=== PATIENT | female | born 1995 | race Caucasian/White ===

== ENCOUNTER 2019-01-12 08:09 | Outpatient (CLI) | payer OTHER ==
--- NOTE | 2019-01-12 14:52 | Ultrasound Report ---
Reason: TEST POSITIVE Procedure Date: 01/12/2019 Accession Number: [id number] / [id number] Procedure: US - OB First Trimester CPT Code: FULL RESULT: EXAM: FIRST TRIMESTER OBSTETRIC ULTRASOUND (Less than 11 weeks) EXAM DATE: 01/12/2019 09:21 AM. CLINICAL HISTORY: TEST POSITIVE. LMP: 11/29/2018. COMPARISONS: None. TECHNIQUE: Transabdominal and transvaginal ultrasound examination with static image documentation. CLINICAL DATES: EGA 6 weeks 2 days with NUNU 09/05/2019 based on LMP. ASSESSMENT: Gestational Sac: Intrauterine gestational sac with a mean sac diameter of 12.1 mm corresponding to an estimated gestation age of 5 weeks 2 days and an NUNU of 09/12/2019. Embryo: none. Cardiac activity: none. Yolk sac: none. Amniotic fluid: Not applicable. Early placenta: Not applicable. Other: None. MATERNAL STRUCTURES: Uterus: Retroverted and retroflexed. Unremarkable. Cervix: Closed. Right Ovary/Adnexa: Right ovary largely replaced by a complex debris-containing right ovarian 5.4 x 4.2 x 5.5 cm cyst. No mural nodules or thickened septations are noted. Left Ovary/Adnexa: 3 x 1.3 x 2.2 Cm complex left ovarian cyst with debris and mild peripheral flow. No mural nodules or thickened septations. . The ovary measures 4.3 x 2.7 x 2.3 cm, volume cc. Free Fluid: None. Other: None. IMPRESSION: 1. Single intrauterine gestational sac containing no yolk sac or embryo. Based on mean sac diameter, estimated gestational age is 5 weeks 2 days with an NUNU of 09/12/2019. Dates based upon mean sac diameter are concordant with dates based upon LMP. Recommend continued US and laboratory monitoring. 2. Right ovary largely replaced by a complex debris-containing 5.5 cm cyst most compatible with hemorrhagic cyst. No mural nodules or thickened septations. 3 cm complex left ovarian cyst most compatible with a corpus luteum. Otherwise, both ovaries and adnexa are normal. 3. No subchorionic hemorrhage or other complications are noted. 4. No abnormality explaining the patient's symptoms. RADIA
== END 2019-01-12 08:10 | disposition home or self-care (01) ==
LOC: DI 08:09
PROVIDERS: ATTEND Registered Nurse
DX: O34.81 Maternal care for other abnormalities of pelvic organs, first trimester (principal); N83.202 Unspecified ovarian cyst, left side; N83.201 Unspecified ovarian cyst, right side; Z3A.01 Less than 8 weeks gestation of pregnancy
CPT/HCPCS: 76801

== ENCOUNTER 2019-02-02 08:14 | Outpatient (CLI) | payer OTHER ==
--- NOTE | 2019-02-02 10:13 | Ultrasound Report ---
Reason: TEST POSTITIVE Procedure Date: 02/02/2019 Accession Number: [id number] / [id number] Procedure: US - OB First Trimester CPT Code: FULL RESULT: EXAM: FIRST TRIMESTER OBSTETRIC ULTRASOUND (Less than 11 weeks) EXAM DATE: 02/02/2019 09:14 AM. CLINICAL HISTORY: TEST POSITIVE. LMP: Unknown. COMPARISONS: None. TECHNIQUE: Transabdominal and transvaginal ultrasound examination with static image documentation. CLINICAL DATES: EGA 9 weeks 2 days with NUNU 09/05/2019 based on LMP 11/29/2018. ASSESSMENT: Gestational Sac: Single intrauterine. Mean gestational sac diameter: 30.5 mm = 8 weeks 0 days. Embryo: CRL (crown-rump length) 21 mm = 8 weeks 5 days. Cardiac activity: 169 beats per minute. Yolk sac: 3.5 mm. Amniotic fluid: Not accurately assessed at this gestational age. Early placenta: Not visible at this gestational age. Other: No perigestational fluid collection demonstrated. MATERNAL STRUCTURES: Uterus: Anteverted/Retroverted. Unremarkable. Cervix: Closed. Right Ovary/Adnexa: The ovary measures 5.4 x 2.7 x 3.1 cm. No adnexal mass. Left Ovary/Adnexa: The ovary measures 4.2 x 3.7 x 3.2 cm. No adnexal mass. Free Fluid: Trace free fluid. Other: None. IMPRESSION: Single living intrauterine with ultrasound based gestational age of 8 weeks 5 days. Size is essentially concordant with dates. No or maternal abnormality identified. RADIA
== END 2019-02-02 08:15 | disposition home or self-care (01) ==
LOC: DI 08:14
PROVIDERS: ATTEND Registered Nurse
DX: Z32.01 Encounter for pregnancy test, result positive (principal)
CPT/HCPCS: 76801; 76817

== ENCOUNTER 2019-02-13 16:18 | Outpatient (CLI) | payer OTHER ==
[2019-02-14 15:29] LABS: MUDS CUTOFF CONCENTRATIONS CUTOFF CONC BELOW:
[2019-02-14 16:16] LABS: AMPHETAMINE SCREEN,URINE NEGATIVE (NEGATIVE); BENZODIAZEPINES SCREEN, URINE NEGATIVE (NEGATIVE); COCAINE SCREEN URINE NEGATIVE (NEGATIVE); METHADONE SCREEN, URINE NEGATIVE (NEGATIVE); METHAMPHETAMINES SCREEN, URINE NEGATIVE (NEGATIVE); OPIATE SCREEN, URINE NEGATIVE (NEGATIVE); OXYCODONE SCREEN, URINE NEGATIVE (NEGATIVE); PROPOXYPHENE SCREEN, URINE NEGATIVE (NEGATIVE); TRICYCLIC ANTIDEPRESSANT,URINE NEGATIVE (NEGATIVE)
== END 2019-02-13 16:19 | disposition home or self-care (01) ==
LOC: LAB.R 16:18
PROVIDERS: ATTEND Registered Nurse
DX: Z36.89 Encounter for other specified antenatal screening (principal)
CPT/HCPCS: 80306

== ENCOUNTER 2019-02-14 13:13 | Outpatient (CLI) | payer OTHER ==
[2019-02-14 18:37] LABS: BILIRUBIN,URINE NEGATIVE (NEGATIVE); GLUCOSE, URINE (UA) NEGATIVE (NEGATIVE); KETONES,URINE (UA) NEGATIVE (NEGATIVE); NITRITE,URINE NEGATIVE (NEGATIVE); OCCULT BLOOD,URINE NEGATIVE (NEGATIVE); PROTEIN,URINE NEGATIVE (NEGATIVE); UROBILINOGEN,URINE 0.2 (NORMAL) E.U./dL (NORMAL)
[2019-02-14 18:50] LABS: BASOPHILS % (AUTO) 0.4 %; EOSINOPHILS # (AUTO) 0.1 10^3/uL (0.0-0.7); EOSINOPHILS % (AUTO) 1.4 %; HGB - HEMOGLOBIN 12.8 g/dL (12.0-16.0); LYMPHOCYTES # (AUTO) 1.8 10^3/uL (1.5-3.5); LYMPHOCYTES % (AUTO) 27.6 %; MEAN CORPUSCULAR HEMOGLOBIN 29.9 pg (27.0-31.0); MEAN CORPUSCULAR HGB CONC 33.6 g/dL (32.0-36.0); MEAN CORPUSCULAR VOLUME 88.8 fL (81.0-99.0); MONOCYTES # (AUTO) 0.5 10^3/uL (0.0-1.0); MONOCYTES % (AUTO) 7.2 %; NEUTROPHILS # (AUTO) 4.1 10^3/uL (1.5-6.6); NEUTROPHILS % (AUTO) 63.4 %; PLT - PLATELET COUNT 280 10^3/uL (130-450); RED CELL DISTRIBUTION WIDTH 13.1 % (12.0-15.0); WHITE BLOOD COUNT 6.4 x10^3/uL (4.8-10.8)
[2019-02-14 19:20] LABS: CLARITY,URINE CLEAR (CLEAR); LEUKOCYTE ESTERASE, URINE NEGATIVE (NEGATIVE)
[2019-02-14 19:21] LABS: BACTERIA,URINE None Seen /HPF (None Seen); RBC,URINE None Seen /HPF (0-5); SQUAMOUS EPITHELIAL CELL,UR RARE Squamous (<= Few)
[2019-02-15 08:31] LABS: HEPATITIS B SURFACE ANTIGEN NON-REACTIVE (NON-REACTIVE)
[2019-02-15 12:46] LABS: HEPATITIS C ANTIBODY NON-REACTIVE (NON-REACTIVE)
[2019-02-15 13:56] LABS: HIV AG/AB 4TH GEN NON-REACTIVE (NON-REACTIVE)
== END 2019-02-14 13:14 | disposition home or self-care (01) ==
LOC: LAB.N 13:13
PROVIDERS: ATTEND Registered Nurse
DX: Z36.89 Encounter for other specified antenatal screening (principal)
CPT/HCPCS: 36415; 81001; 81599; 85025; 86762; 86803; 86850; 86900; 86901; 87086; 87340; 87389

== ENCOUNTER 2019-04-20 08:09 | Outpatient (CLI) | payer OTHER ==
--- NOTE | 2019-04-20 17:15 | Ultrasound Report ---
Reason: ENCOUNTER FOR OTHER SPECIFIED SCREENING Procedure Date: 04/20/2019 Accession Number: [id number] / [id number] Procedure: US - OB Detailed Eval CPT Code: FULL RESULT: EXAM: COMPLETE OBSTETRICAL ULTRASOUND EXAM DATE: 04/20/2019 09:30 AM. CLINICAL HISTORY: anatomic survey. COMPARISON: 02/02/2019. TECHNIQUE: Real-time sonographic evaluation of the fetus performed by the body cleaner. Multiple provider relations representative static images were saved for review. DATING: Established EGA 20 weeks 2 days with NUNU 09/05/2019 based on LMP. EGA 19 weeks 5 days with NUNU 09/09/2019 based on prior ultrasound of 02/02/2019. EGA 19 weeks 0 days with NUNU 09/14/2019 based on the current ultrasound. GENERAL EVALUATION Vo . Cardiac activity: 150 bpm. movement: Present. Presentation: Vertex. Placenta: Posterior position. Low lying placenta terminates 1.7 cm from the internal cervical loss. Umbilical cord: 3 vessel cord. Central placental cord origin. Amniotic fluid: Subjectively normal. MVP 3 cm. BIOMETRY Bi-Parietal Diameter (BPD): 4.1 cm, 18 weeks 4 days Head Circumference (HC): 15.8 cm, 18 weeks 4 days Abdominal Circumference (AC): 13.3 cm, 18 weeks 5 days Femur Length (FL): 3.1 cm, 19 weeks 4 days Estimated Weight: 272 g, fourth percentile for 20 weeks 2 days. ANATOMY The intracranial structures, profile, face/nose/lips, spine, 4 chamber heart and outflow tracts, stomach, abdominal wall and cord insertion, diaphragm, kidneys, bladder, and extremities were seen and demonstrate no abnormality. MATERNAL STRUCTURES Uterus: Unremarkable. Cervix: Long and closed. Transabdominal length 4.5 cm. Right ovary/adnexa: Unremarkable. Left ovary/adnexa: Unremarkable. Free fluid: None. IMPRESSION: 1. Vo intrauterine with gestational age 20 weeks 2 days based on LMP. 2. Estimated weight is at the 4th percentile for expected age. Suggest follow-up OB ultrasound in 2-4 weeks for reassessment of growth. 3. Normal anatomic survey. No anatomic abnormalities are detected at this time. 4. Low lying posterior placenta, the tip 1.7 cm from the internal cervical os. RADIA
== END 2019-04-20 08:10 | disposition home or self-care (01) ==
LOC: DI 08:09
PROVIDERS: ATTEND Nurse Practitioner Obstetrics & Gynecology
DX: Z36.89 Encounter for other specified antenatal screening (principal)
CPT/HCPCS: 76811

== ENCOUNTER 2019-06-11 08:00 | Outpatient (CLI) | payer OTHER ==
[2019-06-11 12:43] LABS: BASOPHILS % (AUTO) 0.2 %; EOSINOPHILS # (AUTO) 0.1 10^3/uL (0.0-0.7); EOSINOPHILS % (AUTO) 0.8 %; HGB - HEMOGLOBIN 11.2 g/dL (12.0-16.0); LYMPHOCYTES # (AUTO) 1.7 10^3/uL (1.5-3.5); LYMPHOCYTES % (AUTO) 18.6 %; MEAN CORPUSCULAR HEMOGLOBIN 30.4 pg (27.0-31.0); MEAN CORPUSCULAR HGB CONC 32.2 g/dL (32.0-36.0); MEAN CORPUSCULAR VOLUME 94.3 fL (81.0-99.0); MONOCYTES # (AUTO) 0.5 10^3/uL (0.0-1.0); MONOCYTES % (AUTO) 5.5 %; NEUTROPHILS # (AUTO) 6.6 10^3/uL (1.5-6.6); NEUTROPHILS % (AUTO) 73.9 %; PLT - PLATELET COUNT 277 10^3/uL (130-450); RED BLOOD COUNT 3.69 10^6/uL (4.20-5.40); RED CELL DISTRIBUTION WIDTH 12.9 % (12.0-15.0); WHITE BLOOD COUNT 8.9 x10^3/uL (4.8-10.8)
== END 2019-06-11 23:59 | disposition home or self-care (01) ==
LOC: LAB.N 08:00
PROVIDERS: ATTEND Nurse Practitioner Obstetrics & Gynecology
DX: Z36.89 Encounter for other specified antenatal screening (principal)
CPT/HCPCS: 36415; 82950; 85025; 86850

== ENCOUNTER 2019-06-15 08:01 | Outpatient (CLI) | payer OTHER | END 2019-06-15 08:02 | disposition home or self-care (01) | LOC: LAB 08:01 | PROVIDERS: ATTEND Nurse Practitioner Obstetrics & Gynecology | DX: O99.810 Abnormal glucose complicating pregnancy (principal) | CPT/HCPCS: 36415; 82951; 82952 ==

== ENCOUNTER 2019-07-10 14:41 | Outpatient (CLI) | payer OTHER ==
[2019-07-10 15:14] VITALS: BP 111/64
--- NOTE | 2019-07-11 12:39 | PROCEDURE REPORT ---
- HPI Current EDU 09/05/19 Gestation 31 Weeks and 6 Days 1 Para 0 Vital Signs Temperature 37.1 C 07/10/19 15:12 Heart Rate 84 07/10/19 15:12 Respiratory Rate 16 07/10/19 15:12 Blood Pressure 111/64 07/10/19 15:12 O2 Saturation 100 07/10/19 15:12 Temperature 37.1 C 07/10/19 15:12 Heart Rate 84 07/10/19 15:12 Respiratory Rate 16 07/10/19 15:12 Blood Pressure 111/64 07/10/19 15:12 O2 Saturation 100 07/10/19 15:12 - NST Procedure NST Procedure Start Date 07/10/19 Start Time 14:56 Stop Time 15:50 Vibroacoustic Stimulation Used No Patient States Movement Yes NST reactive - Results and Plan Findings/Impression: IUGR. Pt seen by MFM twice weekly NST with BPP
== END 2019-07-10 15:50 | disposition home or self-care (01) ==
LOC: WFO 14:41 → FBP 14:44 → WFO 15:50
PROVIDERS: ATTEND Obstetrics & Gynecology
DX: O36.5930 Maternal care for other known or suspected poor fetal growth, third trimester, not applicable or unspecified (principal); Z3A.31 31 weeks gestation of pregnancy
CPT/HCPCS: 59025

== ENCOUNTER 2019-07-24 08:55 | Outpatient (CLI) | payer OTHER ==
[2019-07-24 09:18] VITALS: BP 111/73
--- NOTE | 2019-07-24 10:06 | PROCEDURE REPORT ---
- HPI Diagnosis/Indication for NST: Intrauterine growth restriction Current EDU 09/05/19 Gestation 33 Weeks and 6 Days 1 Para 0 Vital Signs Temperature 36.9 C 07/24/19 09:17 Heart Rate 88 07/24/19 09:17 Respiratory Rate 16 07/24/19 09:17 Blood Pressure 111/73 07/24/19 09:17 O2 Saturation 99 07/24/19 09:17 Temperature 36.9 C 07/24/19 09:17 Heart Rate 88 07/24/19 09:17 Respiratory Rate 16 07/24/19 09:17 Blood Pressure 111/73 07/24/19 09:17 O2 Saturation 99 07/24/19 09:17 - NST Procedure NST Procedure Start Date 07/24/19 Start Time 09:04 Stop Time 15:33 Vibroacoustic Stimulation Used No Patient States Movement Yes - Results and Plan Findings/Impression: Reactive NST as noted. The NST was read on 07/24/2019. Plan: The patient is going to be discharged home. She has a follow-up ultrasound on 07/26/2019 at the [facility] in [place].She states they are trying to determine whether she will deliver there or here. She does state that at this point time FMF and have found nothing more with this fetus then being slightly small but I do not feel that this is true IUGR at this time.She will continue with her biweekly NSTs.
== END 2019-07-24 09:45 | disposition home or self-care (01) ==
LOC: WFO 08:55 → FBP 08:58 → WFO 09:45
PROVIDERS: ATTEND Obstetrics & Gynecology
DX: O36.5930 Maternal care for other known or suspected poor fetal growth, third trimester, not applicable or unspecified (principal); Z3A.33 33 weeks gestation of pregnancy
CPT/HCPCS: 59025

== ENCOUNTER 2019-07-31 14:53 | Outpatient (CLI) | payer OTHER ==
[2019-07-31 15:21] VITALS: BP 107/65
--- NOTE | 2019-07-31 15:50 | PROCEDURE REPORT ---
- HPI Diagnosis/Indication for NST: Intrauterine growth restriction Current EDU 09/05/19 Gestation 34 Weeks and 6 Days 1 Para 0 Vital Signs Temperature 36.8 C 07/31/19 15:10 Heart Rate 96 07/31/19 15:10 Respiratory Rate 16 07/31/19 15:10 Blood Pressure 107/65 07/31/19 15:10 O2 Saturation 100 07/31/19 15:10 Temperature 36.8 C 07/31/19 15:10 Heart Rate 96 07/31/19 15:10 Respiratory Rate 16 07/31/19 15:10 Blood Pressure 107/65 07/31/19 15:10 O2 Saturation 100 07/31/19 15:10 - NST Procedure NST Procedure Start Date 07/31/19 Start Time 15:10 Stop Time 15:40 Vibroacoustic Stimulation Used No Patient States Movement Yes - Results and Plan Findings/Impression: The NST is reactive. This was read on 07/31/2019 Impression: Intrauterine at 34 weeks 6 days gestation IUGR Plan: The patient is going to be discharged home. She will follow-up with her regular office appointments and serial NSTs.
== END 2019-07-31 15:45 | disposition home or self-care (01) ==
LOC: WFO 14:53 → FBP 15:04 → WFO 15:45
PROVIDERS: ATTEND Obstetrics & Gynecology
DX: O36.5930 Maternal care for other known or suspected poor fetal growth, third trimester, not applicable or unspecified (principal); Z3A.34 34 weeks gestation of pregnancy
CPT/HCPCS: 59025

== ENCOUNTER 2019-08-07 08:00 | Outpatient (CLI) | payer OTHER | END 2019-08-07 23:59 | disposition home or self-care (01) | LOC: LAB.R 08:00 | PROVIDERS: ATTEND Obstetrics & Gynecology | DX: O24.419 Gestational diabetes mellitus in pregnancy, unspecified control (principal) | CPT/HCPCS: 87797 ==

== ENCOUNTER 2019-08-07 14:48 | Outpatient (CLI) | payer OTHER ==
[2019-08-07 15:15] VITALS: BP 115/72
--- NOTE | 2019-08-07 18:08 | Ultrasound Report ---
Reason: IUGR Procedure Date: 08/07/2019 Accession Number: [id number] / [id number] Procedure: US - OB Bio w/Non Stress CPT Code: FULL RESULT: EXAM: BIOPHYSICAL PROFILE EXAM DATE: 08/07/2019 04:11 PM. CLINICAL HISTORY: Intrauterine growth restriction. IUGR. COMPARISON: OB F/U OR REPEAT 05/10/2019 8:41 AM. TECHNIQUE: Real-time sonographic evaluation of the fetus performed by the director of assessing. Multiple data entry representative static images were saved for review. DATING: Established EGA 35 weeks 6 days with NUNU 09/05/2019 based on last ultrasound on 05/10/2019. GENERAL EVALUATION Vo . Cardiac activity: 153 bpm. movement: Visualized. Presentation: Cephalic. Placenta: Posterior position. Amniotic fluid: Normal. DOMENICA 16.7 cm. MVP 4.8 cm. BIOPHYSICAL PROFILE Breathing = 2 Movement = 2 Tone = 2 Amniotic Fluid = 2 Total 05/24 IMPRESSION: 1. Vo live intrauterine with gestational age 35 weeks 6 days based on established NUNU. 2. Biophysical profile score 8 of 8, normal. RADIA
--- NOTE | 2019-08-08 09:32 | PROCEDURE REPORT ---
- HPI Diagnosis/Indication for NST: Intrauterine growth restriction (Pt states that her last Growthscan at [facility] showed 16 %tile growth.) Current EDU 09/05/19 Gestation 35 Weeks and 6 Days 1 Para 0 Vital Signs Temperature 36.5 C 08/07/19 14:57 Heart Rate 96 08/07/19 14:57 Respiratory Rate 18 08/07/19 14:57 Blood Pressure 115/72 08/07/19 14:57 O2 Saturation 98 08/07/19 14:57 Temperature 36.5 C 08/07/19 14:57 Heart Rate 96 08/07/19 14:57 Respiratory Rate 18 08/07/19 14:57 Blood Pressure 115/72 08/07/19 14:57 O2 Saturation 98 08/07/19 14:57 - NST Procedure NST Procedure Start Date 08/07/19 Start Time 14:55 Stop Time 16:14 Vibroacoustic Stimulation Used No Patient States Movement Yes - Results and Plan Findings/Impression: reactive NST with varrible decelerations BPP 8/8.
== END 2019-08-07 17:05 | disposition home or self-care (01) ==
LOC: WFO 14:48 → FBP 14:51 → WFO 17:05
PROVIDERS: ATTEND Obstetrics & Gynecology
DX: O36.5930 Maternal care for other known or suspected poor fetal growth, third trimester, not applicable or unspecified (principal); Z3A.35 35 weeks gestation of pregnancy
CPT/HCPCS: 59025; 76818; 76819

== ENCOUNTER 2019-08-10 13:36 | Outpatient (CLI) | payer OTHER ==
[2019-08-10 13:51] VITALS: BP 115/74
--- NOTE | 2019-08-13 14:25 | Ultrasound Report ---
Reason: GESTATIONAL DIABETES MELLITUS Procedure Date: 08/10/2019 Accession Number: [id number] / [id number] Procedure: US - OB Biophysical Profile CPT Code: FULL RESULT: EXAM: BIOPHYSICAL PROFILE EXAM DATE: 08/10/2019 03:30 PM. CLINICAL HISTORY: GESTATIONAL DIABETES MELLITUS. COMPARISON: OB BIO W/NON STRESS 08/07/2019 4:11 PM. TECHNIQUE: Real-time sonographic evaluation of the fetus performed by the prop worker. Multiple telesales representative static images were saved for review. DATING: Established EGA 36 weeks 2 days with NUNU 09/05/2019. GENERAL EVALUATION Vo . Cardiac activity: 168 bpm. movement: Present Presentation: Cephalic. Placenta: Posterior position. No evidence for previa or abruption. Amniotic fluid: Normal. DOMENICA 14.4 cm. MVP 5 cm. BIOPHYSICAL PROFILE Breathing = 0 Movement = 2 Tone = 2 Amniotic Fluid = 2 Total 03/24 IMPRESSION: 1. Vo live intrauterine with gestational age 36 weeks 2 days based on established NUNU of 09/05/2019. 2. Biophysical profile score 6 of 8. FRANCISCA
--- NOTE | 2019-08-15 11:44 | PROCEDURE REPORT ---
- HPI Diagnosis/Indication for NST: Intrauterine growth restriction Current EDU 09/05/19 Gestation 36 Weeks and 2 Days 1 Para 0 Vital Signs Temperature 36.4 C L 08/10/19 13:50 Heart Rate 88 08/10/19 13:50 Respiratory Rate 16 08/10/19 13:50 Blood Pressure 115/74 08/10/19 13:50 O2 Saturation 100 08/10/19 13:50 Temperature 36.4 C L 08/10/19 13:50 Heart Rate 88 08/10/19 13:50 Respiratory Rate 16 08/10/19 13:50 Blood Pressure 115/74 08/10/19 13:50 O2 Saturation 100 08/10/19 13:50 - NST Procedure NST Procedure Start Date 08/10/19 Start Time 13:43 Stop Time 14:03 Vibroacoustic Stimulation Used No Patient States Movement Yes - Results and Plan Findings/Impression: base line 135. reactive with excellent accelertations. BPP 6/8 few breathing movements. 8/10 repeat tomorrow Plan: repeat NST tomorrow
== END 2019-08-10 15:53 | disposition home or self-care (01) ==
LOC: WFO 13:36 → FBP 13:39 → WFO 15:53
PROVIDERS: ATTEND Obstetrics & Gynecology
DX: O36.5930 Maternal care for other known or suspected poor fetal growth, third trimester, not applicable or unspecified (principal); O24.419 Gestational diabetes mellitus in pregnancy, unspecified control; Z3A.36 36 weeks gestation of pregnancy
CPT/HCPCS: 59025; 76819

== ENCOUNTER 2019-08-11 09:52 | Outpatient (CLI) | payer OTHER ==
[2019-08-11 10:20] VITALS: BP 116/64
--- NOTE | 2019-08-15 11:51 | PROCEDURE REPORT ---
- HPI Current EDU 09/05/19 Gestation 36 Weeks and 3 Days 1 Para 0 Vital Signs Temperature 36.7 C 08/11/19 10:17 Heart Rate 95 08/11/19 10:17 Respiratory Rate 18 08/11/19 10:17 Blood Pressure 116/64 08/11/19 10:17 O2 Saturation 99 08/11/19 10:17 Temperature 36.7 C 08/11/19 10:17 Heart Rate 95 08/11/19 10:17 Respiratory Rate 18 08/11/19 10:17 Blood Pressure 116/64 08/11/19 10:17 O2 Saturation 99 08/11/19 10:17 - NST Procedure NST Procedure Start Date 08/11/19 Start Time 10:16 Stop Time 11:40 Vibroacoustic Stimulation Used No Patient States Movement Yes - Results and Plan Findings/Impression: base line 135 excellent excelerations. Plan: continue antinatal evaluations
== END 2019-08-11 11:48 | disposition home or self-care (01) ==
LOC: WFO 09:52 → FBP 09:54 → WFO 11:48
PROVIDERS: ATTEND Obstetrics & Gynecology
DX: O36.5930 Maternal care for other known or suspected poor fetal growth, third trimester, not applicable or unspecified (principal); O24.419 Gestational diabetes mellitus in pregnancy, unspecified control; Z3A.36 36 weeks gestation of pregnancy
CPT/HCPCS: 59025

== ENCOUNTER 2019-08-14 14:46 | Outpatient (CLI) | payer OTHER ==
[2019-08-14 15:07] VITALS: BP 119/81
--- NOTE | 2019-08-14 15:53 | PROCEDURE REPORT ---
- HPI Diagnosis/Indication for NST: Other (SGA) Current EDU 09/05/19 Gestation 36 Weeks and 6 Days 1 Para 0 Vital Signs Temperature 36.6 C 08/14/19 15:00 Heart Rate 94 08/14/19 15:00 Respiratory Rate 16 08/14/19 15:00 Blood Pressure 119/81 H 08/14/19 15:00 O2 Saturation 98 08/14/19 15:00 Temperature 36.6 C 08/14/19 15:00 Heart Rate 94 08/14/19 15:00 Respiratory Rate 16 08/14/19 15:00 Blood Pressure 119/81 H 08/14/19 15:00 O2 Saturation 98 08/14/19 15:00 - NST Procedure NST Procedure Start Date 08/14/19 Start Time 15:00 Stop Time 15:23 Vibroacoustic Stimulation Used No Patient States Movement Yes: decreased - Results and Plan Findings/Impression: The NST is reactive. The strip was read on 08/14/2019 Impression: Intrauterine at 36 weeks and 6 days gestation SGA Plan: The patient is being discharged home. She is to have a repeat scan at [facility] on 08/16/2019. She will continue with her serial surveillance.
== END 2019-08-14 15:30 | disposition home or self-care (01) ==
LOC: WFO 14:46 → FBP 14:49 → WFO 15:30
PROVIDERS: ATTEND Obstetrics & Gynecology
DX: O36.5930 Maternal care for other known or suspected poor fetal growth, third trimester, not applicable or unspecified (principal); Z3A.36 36 weeks gestation of pregnancy
CPT/HCPCS: 59025

== ENCOUNTER 2019-08-21 14:29 | Outpatient (CLI) | payer OTHER ==
[2019-08-21 14:56] VITALS: BP 118/75
--- NOTE | 2019-08-22 08:04 | PROCEDURE REPORT ---
- HPI Diagnosis/Indication for NST: Gestational Diabetes (Pt has IUGR but now is 26%tile) Current EDU 09/05/19 Gestation 37 Weeks and 6 Days 1 Para 0 Vital Signs Temperature 36.9 C 08/21/19 14:51 Heart Rate 78 08/21/19 14:51 Respiratory Rate 16 08/21/19 14:51 Blood Pressure 118/75 08/21/19 14:51 O2 Saturation 100 08/21/19 14:51 Temperature 36.9 C 08/21/19 14:51 Heart Rate 78 08/21/19 14:51 Respiratory Rate 16 08/21/19 14:51 Blood Pressure 118/75 08/21/19 14:51 O2 Saturation 100 08/21/19 14:51 - NST Procedure NST Procedure Start Date 08/21/19 Start Time 14:47 Stop Time 15:11 Vibroacoustic Stimulation Used No Patient States Movement Yes reactive NST with good FM - Results and Plan Findings/Impression: Reactive NST Plan: repeat with induction at 39 weeks
== END 2019-08-21 15:21 | disposition home or self-care (01) ==
LOC: WFO 14:29 → FBP 14:31 → WFO 15:21
PROVIDERS: ATTEND Obstetrics & Gynecology
DX: O24.419 Gestational diabetes mellitus in pregnancy, unspecified control (principal); O36.5930 Maternal care for other known or suspected poor fetal growth, third trimester, not applicable or unspecified; Z3A.37 37 weeks gestation of pregnancy
CPT/HCPCS: 59025

== ENCOUNTER 2019-08-24 14:57 | Outpatient (CLI) | payer OTHER ==
[2019-08-24 15:15] VITALS: BP 122/79
--- NOTE | 2019-08-24 15:26 | PROCEDURE REPORT ---
- HPI Diagnosis/Indication for NST: Intrauterine growth restriction (most recent Growth scan 26%tile) Current EDU 09/05/19 Gestation 38 Weeks and 2 Days 1 Para 0 Vital Signs Temperature 36.5 C 08/24/19 15:14 Heart Rate 90 08/24/19 15:14 Respiratory Rate 17 08/24/19 15:14 Blood Pressure 122/79 08/24/19 15:14 O2 Saturation 99 08/24/19 15:14 Temperature 36.5 C 08/24/19 15:14 Heart Rate 90 08/24/19 15:14 Respiratory Rate 17 08/24/19 15:14 Blood Pressure 122/79 08/24/19 15:14 O2 Saturation 99 08/24/19 15:14 - NST Procedure NST Procedure Start Date 08/24/19 Start Time 15:03 Stop Time 15:19 Vibroacoustic Stimulation Used No Patient States Movement Yes - Results and Plan Findings/Impression: reactive NST BPP pending P Plan: BPP pending scheduled for induction at 39 weeks
== END 2019-08-24 15:26 | disposition home or self-care (01) ==
LOC: WFO 14:57 → FBP 14:58 → WFO 15:26
PROVIDERS: ATTEND Obstetrics & Gynecology
DX: O36.5930 Maternal care for other known or suspected poor fetal growth, third trimester, not applicable or unspecified (principal); Z3A.38 38 weeks gestation of pregnancy; O24.419 Gestational diabetes mellitus in pregnancy, unspecified control
CPT/HCPCS: 59025; 76819

== ENCOUNTER 2019-08-24 15:54 | Outpatient (CLI) | payer OTHER ==
--- NOTE | 2019-08-24 17:27 | Ultrasound Report ---
Reason: GESTATIONAL DIABETES Procedure Date: 08/24/2019 Accession Number: [id number] / [id number] Procedure: US - OB Biophysical Profile CPT Code: Final Report FULL RESULT: EXAM: BIOPHYSICAL PROFILE EXAM DATE: 08/24/2019 04:36 PM. CLINICAL HISTORY: GESTATIONAL DIABETES. COMPARISON: OB BIOPHYSICAL PROFILE 08/10/2019 2:48 PM. TECHNIQUE: Real-time sonographic evaluation of the fetus performed by the booking prizer. Multiple workforce services representative static images were saved for review. DATING: Established EGA 38 weeks 2 days with NUNU 09/05/2019. GENERAL EVALUATION Vo . Cardiac activity: 177 bpm. movement: Visualized. Presentation: Cephalic. Placenta: Posterior position. No evidence for previa or abruption. Amniotic fluid: Normal. DOMENICA 15 cm. MVP 5 cm. BIOPHYSICAL PROFILE Breathing = 2 Movement = 2 Tone = 2 Amniotic Fluid = 2 Total 05/24 IMPRESSION: 1. Vo live intrauterine with gestational age 38 weeks 2 days based on established NUNU of 09/05/2019. 2. Biophysical profile score 8 of 8. FRANCISCA
== END 2019-08-24 15:55 | disposition home or self-care (01) ==
LOC: DI 15:54
PROVIDERS: ATTEND Obstetrics & Gynecology
DX: O24.419 Gestational diabetes mellitus in pregnancy, unspecified control (principal); O36.5930 Maternal care for other known or suspected poor fetal growth, third trimester, not applicable or unspecified; Z3A.38 38 weeks gestation of pregnancy
CPT/HCPCS: 76819

== ENCOUNTER 2019-08-28 14:53 | Outpatient (CLI) | payer OTHER ==
[2019-08-28 15:12] VITALS: BP 137/88
--- NOTE | 2019-08-28 15:24 | PROCEDURE REPORT ---
- HPI Diagnosis/Indication for NST: Gestational Diabetes Current EDU 09/05/19 Gestation 38 Weeks and 6 Days 1 Para 0 Vital Signs Temperature 36.7 C 08/28/19 15:04 Heart Rate 96 08/28/19 15:04 Respiratory Rate 16 08/28/19 15:04 Blood Pressure 137/88 H 08/28/19 15:04 O2 Saturation 100 08/28/19 15:04 Temperature 36.7 C 08/28/19 15:04 Heart Rate 96 08/28/19 15:04 Respiratory Rate 16 08/28/19 15:04 Blood Pressure 137/88 H 08/28/19 15:04 O2 Saturation 100 08/28/19 15:04 - NST Procedure NST Procedure Start Date 08/28/19 Start Time 15:04 Stop Time 15:19 Patient States Movement Yes - Results and Plan Findings/Impression: The NST is reactive. This was read on 08/28/2019. Plan: The patient will be discharged home. She will follow-up with her regular visits and continue her serial testing.
--- NOTE | 2019-08-28 17:46 | Ultrasound Report ---
Reason: GDM, IUGR, Tachycardia Procedure Date: 08/28/2019 Accession Number: [id number] / [id number] Procedure: US - OB Bio w/Non Stress CPT Code: Addended Final Report FULL RESULT: EXAM: BIOPHYSICAL PROFILE EXAM DATE: 08/28/2019 04:58 PM. CLINICAL HISTORY: GDM. IUGR. Tachycardia. COMPARISON: OB BIO W/NON STRESS 08/07/2019 4:11 PM. TECHNIQUE: Real-time sonographic evaluation of the fetus performed by the farm equipment assembler. Multiple patient financial representative static images were saved for review. DATING: Established EGA 38 weeks 6 days with NUNU 09/05/2019. GENERAL EVALUATION Vo . Cardiac activity: 160 bpm. movement: Visualized. Presentation: Cephalic. Placenta: Posterior position. No evidence for previa or abruption. Amniotic fluid: Normal. DOMENICA 13.9 cm. MVP 4 cm. BIOPHYSICAL PROFILE Breathing = 2 Movement = 2 Tone = 2 Amniotic Fluid = 2 Total 8 IMPRESSION: 1. Vo live intrauterine with gestational age 38 weeks 6 days based on established NUNU of 09/05/2019. 2. Biophysical profile score 8 of 8. RADIA The call report notification system was initiated by Dr. Rob Sanchez at 05:44 PM on 08/28/2019. ADDENDUM: 08/28/19 17:47 The above call report findings were discussed with Dionna Augustin RN by Dr. Rob Sanchez at 05:47 PM on 08/28/2019.
== END 2019-08-28 17:40 | disposition home or self-care (01) ==
LOC: WFO 14:53 → FBP 14:54 → WFO 17:40
PROVIDERS: ATTEND Obstetrics & Gynecology
DX: O24.419 Gestational diabetes mellitus in pregnancy, unspecified control (principal); O36.5930 Maternal care for other known or suspected poor fetal growth, third trimester, not applicable or unspecified; Z3A.38 38 weeks gestation of pregnancy
CPT/HCPCS: 59025; 76818; 76819

== ENCOUNTER 2019-08-29 19:24 | Inpatient (IN) | payer OTHER ==
[2019-08-29] MEDS ORDERED: LACTATED RINGERS 1,000 ML IV ONE (20:26)
[2019-08-29] MEDS ORDERED: SODIUM CHLORIDE FLUSH 0.9% 10 ML SYRINGE IVP PRN (20:30)
[2019-08-29] MEDS ORDERED: CARBOPROST TROMETHAMINE 250 MCG/ML AMP IM PRN (20:31)
[2019-08-29] MEDS ORDERED: fentaNYL 100 MCG/2 ML VIAL IVP PRN (20:31)
[2019-08-29] MEDS ORDERED: miSOPROStoL 200 MCG TABLET PR PRN (20:31)
[2019-08-29] MEDS ORDERED: METHYLERGONOVINE 0.2 MG/ML AMP IM PRN (20:31)
[2019-08-29] MEDS ORDERED: LACTATED RINGERS 500 ML IV ONE (20:35)
--- NOTE | 2019-08-29 20:47 | HISTORY & PHYSICAL EXAMINATION ---
Admit History - Visit Reason Visit Reason: Other (IOL) - : 1 Parity: 0 Care: positive: [facility] Risk/History: positive: Gestational diabetes, Other (SGA/growth restr iction; resolved) Complications This : positive: Gestational diabetes, Other (05/23/19 -- 25w0d IUGR, EFW 6%, AC 8%, UA SD WNL *CFFD drawn, result = low risk *CMV, toxo IgG/M = no evidence of acute infection 06/13/2019, 28w0d, efw 8%ile, AC 15%ile, normal Dopplers 06/22/2019, 29w2d, normal Dopplers and nml DOMENICA 06/29/2019, 30w2d, normal Dopplers and nml DOMENICA 07/06/2019, 31w2d, efw 4%ile, nml DOMENICA and Doppler evaluation 07/12/2019, 32w2d, nml Dopplers and DOMENICA 07/26/2019, 34w1d, efw 16%ile, nml DOMENICA 08/28/2019, efw 24%ile) - Mother's Labs Mother's Blood Type: positive: A Mother's RH: positive: Positive GBS: positive: Group B Step Negative Rubella Status: positive: Immune - Other Maternal History Other Maternal History: Patient is a 24-year-old G1, P0 at 39 weeks 0 days with an NUNU of 09/05/2019 here for induction of labor. she has been complicated by gestational diabetes, diet controlled. Reports that fasting blood sugars and postprandials at breakfast and lunch are within normal range. Postprandials at dinner have been running in the low 120s. Managed by maternal- medicine. IUGR demonstrated in early with growth estimated to be 4th percentile on 07/06/2019. Subsequent growth ultrasounds if showed steady increase in weight. Estimated rate was 16 percentile on 07/26/2019. Most recently it was 24th percentile on 08/16/2019. Presents for induction of labor for gestational diabetes. SVE in clinic on 08/28/2019 was fingertip/30/-3. Confirmed vertex by ultrasound. A positive/rubella immune/GBS negative. Denies HSV. Meds/Allgy - Allergies Allergies/Adverse Reactions: Allergies Allergy/AdvReac Type Severity Reaction Status Date / Time No Known Drug Allergies Allergy Verified 07/10/19 14:59 Review of Systems - Other Findings Other Findings: As per HPI otherwise remaining systems are negative. Physical - Abdominal Exam Vital Signs: reviewed. High normal BP Contraction Frequency (min/apart): none - Monitoring Heart Rate Baseline: 180 Strip Review: positive: Category II - Presentation Presentation: positive: Vertex - Vaginal Exam Membranes: positive: Membranes intact Dilation (in cm): FT Effacement (%): 30 Station: positive: -3 - Speculum Exam Speculum Exam Performed: positive: No Plan for Labor - Plan For Labor Plan for Labor: Patient is a 24-year-old G1, P0 at 39 and 0 weeks estimated gestational age admitted for induction of labor for gestational diabetes; IUGR resolved. IOL: Unfavorable cervix. -We will start cervical ripening with misoprostol 50 mcg buccally every 4 hours x6 doses -Consider Benedict bulb placement with increased favorability -Pitocin when cervix is favorable -Written informed consent obtained. well-being: -Vertex -GBS neg -Has been followed by MFM for IUGR. EFW 4%ile 07/06/19. Has since resolved iwht most recent EFW 24%ile on 08/16/19 -Tachycardic to the 180s;afebrile and without abd tenderness or bleeding. Records shows HR in 177 on last NST. BPP 8/8 at that time -Giving fluid bolus - Remote from delivery in a primigravida. Increased concern for CS. - Cont to monitor GDM: Normal range glucose at admit. A1DM -Check 1 hour PP and Q2H when NPO A pos/Rub imm Admit for IOL.
[2019-08-29 20:49] LABS: BASOPHILS % (AUTO) 0.3 %; EOSINOPHILS # (AUTO) 0.1 10^3/uL (0.0-0.7); EOSINOPHILS % (AUTO) 1.2 %; HGB - HEMOGLOBIN 10.9 g/dL (12.0-16.0); LYMPHOCYTES # (AUTO) 1.8 10^3/uL (1.5-3.5); LYMPHOCYTES % (AUTO) 20.7 %; MEAN CORPUSCULAR HEMOGLOBIN 29.3 pg (27.0-31.0); MEAN CORPUSCULAR HGB CONC 32.3 g/dL (32.0-36.0); MEAN CORPUSCULAR VOLUME 90.6 fL (81.0-99.0); MEAN PLATELET VOLUME 10.4 fL (7.9-10.8); MONOCYTES # (AUTO) 0.6 10^3/uL (0.0-1.0); MONOCYTES % (AUTO) 7.3 %; NEUTROPHILS % (AUTO) 69.8 %; PLT - PLATELET COUNT 243 10^3/uL (130-450); RED BLOOD COUNT 3.72 10^6/uL (4.20-5.40); RED CELL DISTRIBUTION WIDTH 13.2 % (12.0-15.0); WHITE BLOOD COUNT 8.6 x10^3/uL (4.8-10.8)
[2019-08-29] MEDS: LACTATED RINGERS 1,000 ML IV SCH (21:00)
[2019-08-29] MEDS: miSOPROStoL 100 MCG TABLET BC SCH (22:22)
--- NOTE | 2019-08-30 00:09 | PROVIDER PROGRESS NOTE ---
Labor Progress Note - Monitoring Monitor Mode: positive: External ultrasound Heart Rate Baseline: 145 Heart Rate Variability: positive: Moderate (6-25 bmp) Accelerations: positive: Present, 15x15 Decelerations: positive: None - Vaginal Exam Dilation (in cm): closed Effacement (%): long Station: -3 - Labor Progress Note Labor Progress Note/Additional Text: tachycardia resolved Now with cat I tracing Initiated ripening with misoprostol
[2019-08-30] MEDS ORDERED: SODIUM CHLORIDE FLUSH 0.9% 10 ML SYRINGE IVP SCH (01:00)
[2019-08-30] MEDS: LACTATED RINGERS 1,000 ML IV SCH ×2 (02:54→13:22)
[2019-08-30] MEDS: miSOPROStoL 100 MCG TABLET BC SCH (06:47)
--- NOTE | 2019-08-30 08:55 | PROVIDER PROGRESS NOTE ---
Labor Progress Note - Uterine Monitoring Contraction Frequency (min/apart): 2-3 Contraction Intensity: positive: Mild Uterine Resting Tone: positive: Soft - Monitoring Monitor Mode: positive: External ultrasound Heart Rate Baseline: 150 Heart Rate Variability: positive: Moderate (6-25 bmp) Accelerations: positive: Present, 15x15 Decelerations: positive: None Strip Review: positive: Category I - Vaginal Exam Dilation (in cm): 1 Effacement (%): 50% Station: -3 Cervical Position: Posterior - Labor Progress Note Labor Progress Note/Additional Text: Cx not changing continue cytotec. not dilated enough for Cook
--- NOTE | 2019-08-30 17:41 | PROVIDER PROGRESS NOTE ---
Labor Progress Note - Uterine Monitoring Uterine Monitoring Mode: positive: External toco Contraction Frequency (min/apart): 2-4 Contraction Intensity: positive: Moderate to strong Uterine Resting Tone: positive: Soft - Monitoring Monitor Mode: positive: External ultrasound Heart Rate Baseline: 130 Heart Rate Variability: positive: Moderate (6-25 bmp) Accelerations: positive: Present, 15x15 Decelerations: positive: None Strip Review: positive: Category I - Vaginal Exam Dilation (in cm): 1 Effacement (%): 80 Station: -3 Cervical Position: Midposition - Labor Progress Note Labor Progress Note/Additional Text: Slow progress. Contraction pattern improving. No need for pit Pt may benefit from Analgesia
[2019-08-30] MEDS ORDERED: ROPIVACAINE 0.2% 200 MG/100 ML BAG EP ONE (19:59)
[2019-08-30] MEDS ORDERED: fentaNYL 100 MCG/2 ML VIAL ONE (19:59)
--- NOTE | 2019-08-30 21:05 | ANESTHESIA ---
Pre-Anesthesia VS, & Labs - Diagnosis Active labor - Procedure Labor epidural Height 5 ft 7 in Weight (kg) 88.818 kg Body Mass Index 32.2 - Is Patient ?: Yes - Lab Results Current Lab Results: Laboratory Tests 08/29/19 20:35: WBC 8.6, RBC 3.72 L, Hgb 10.9 L, Hct 33.7 L, MCV 90.6, MCH 29.3, MCHC 32.3, RDW 13.2, Plt Count 243, MPV 10.4, Neut # (Auto) 6.0, Lymph # (Auto) 1.8, [place] # (Auto) 0.6, Eos # (Auto) 0.1, Baso # (Auto) 0.0, Absolute Nucleated RBC 0.00, Nucleated RBC % 0.0 Fish Bones: 08/29/19 20:35 Home Medications and Allergies Active Medications Acetaminophen (Tylenol) 650 mg PO Q6H PRN PRN Reason: Pain or Fever Fentanyl (Fentanyl) 50 mcg IVP Q1H PRN PRN Reason: PAIN Last Admin: 08/30/19 18:46 Dose: 50 mcg Lactated Ringer's (Lr) 1,000 mls @ 100 mls/hr IV .Q10H LASHANDA Last Admin: 08/30/19 13:22 Dose: 100 mls/hr OXYTOCIN/DEXTROSE 5 % (Pitocin/Dextrose 5%) 30 unit in 500 mls @ 999 mls/hr IV PRN PRN; Protocol PRN Reason: POST- HEMORR PREVENTION Methylergonovine Maleate (Methergine Inj) 0.2 mg IM Q4H PRN PRN Reason: Post- Hemorrhage Misoprostol (Cytotec) 50 mcg BC Q4HR LASHANDA Last Admin: 08/30/19 06:47 Dose: 50 mcg Sodium Chloride (Normal Saline Flush 0.9%) 10 ml IVP 0100,0900,1700 LASHANDA Sodium Chloride (Normal Saline Flush 0.9%) 10 ml IVP PRN PRN PRN Reason: NEEDED PER PROVIDER ORDERS Allergies/Adverse Reactions: Allergies Allergy/AdvReac Type Severity Reaction Status Date / Time No Known Drug Allergies Allergy Verified 07/10/19 14:59 Anes History & Medical History - Anesthetic History Anesthesia Complications: reports: No previous complications Family history of Anesthesia Complications: Denies Family history of Malignant Hyperthermia: Denies - Medical History Cardiovascular: reports: None Pulmonary: reports: None Gastrointestinal: reports: None Urinary: reports: None Neuro: reports: None Musculoskeletal: reports: None Endocrine/Autoimmune: reports: Other (Gestational diabetes) Blood Disorders: reports: None Skin: reports: None Smoking Status: Never smoker Psychosocial: reports: No issues indicated - Obstetrical History : 1 Parity: 0 Events: positive: Gestational diabetes, Other (SGA/growth restriction; resolved) Complications: positive: Gestational diabetes, Other (05/23/19 -- 25w0d IUGR, EFW 6%, AC 8%, UA SD WNL *CFFD drawn, result = low risk *CMV, toxo IgG/M = no evidence of acute infection 06/13/2019, 28w0d, efw 8%ile, AC 15%ile, normal Dopplers 06/22/2019, 29w2d, normal Dopplers and nml DOMENICA 06/29/2019, 30w2d, normal Dopplers and nml DOMENICA 07/06/2019, 31w2d, efw 4%ile, nml DOMENICA and Dop pler evaluation 07/12/2019, 32w2d, nml Dopplers and DOMENICA 07/26/2019, 34w1d, efw 16%ile, nml DOMENICA 08/28/2019, efw 24%ile) Exam General: Alert, Oriented x3, Cooperative Dental: WNL Mouth Openin Fingerbreadth Neck Mobility: Normal Mallampati classification: II Thyromental Distance: greater than 6 cm Mental/Cognitive Status: Alert/Oriented X3 Cognitive Status: Within normal limits Plan Anesthesia Type: Epidural Consent for Procedure(s) Verified and Reviewed: Yes Code Status: Attempt Resuscitation ASA classification: 2-Mild systemic disease Is this case an emergency?: Yes
[2019-08-30] MEDS ORDERED: ROPIVACAINE 0.2% 200 MG/100 ML BAG EP PRN (21:07)
[2019-08-30] MEDS ORDERED: diphenhydrAMINE INJ 50 MG/ML VIAL IVP PRN ×2 (21:10)
[2019-08-30] MEDS ORDERED: LACTATED RINGERS 500 ML IV ONE (21:10)
[2019-08-30] MEDS ORDERED: NALOXONE 0.4 MG/ML VIAL IVP PRN (21:10)
[2019-08-30] MEDS ORDERED: METOCLOPRAMIDE 10 MG/2 ML VIAL IVP PRN (21:10)
[2019-08-30] MEDS ORDERED: NALBUPHINE 10 MG/ML AMP IVP PRN ×2 (21:10)
[2019-08-30] MEDS ORDERED: ONDANSETRON 4 MG/2 ML VIAL IVP PRN ×2 (21:10)
[2019-08-30] MEDS ORDERED: ePHEDrine 50 MG/ML VIAL IVP PRN (21:10)
--- NOTE | 2019-08-30 23:46 | PROVIDER PROGRESS NOTE ---
Labor Progress Note - Uterine Monitoring Contraction Frequency (min/apart): not picking up Contraction Intensity: positive: Mild to moderate Uterine Resting Tone: positive: Soft - Monitoring Monitor Mode: positive: External ultrasound Heart Rate Baseline: 135 Heart Rate Variability: positive: Minimal (0-5 bpm) Accelerations: positive: Present, 15x15 Strip Review: positive: Category I - Vaginal Exam Dilation (in cm): 3.5 Effacement (%): 90 Station: -1 Cervical Position: Midposition - Labor Progress Note Labor Progress Note/Additional Text: Pt has episods of lates which have resolved. now reactive with scalp stimulation. Contractions mild but changing will not start pitocin for now.
[2019-08-31] MEDS: LACTATED RINGERS 1,000 ML IV SCH ×2 (00:13→05:50)
[2019-08-31] MEDS: OXYTOCIN/DEXTROSE 5 % 30 UNIT/500 ML BAG IV PRN ×2 (04:48→06:13)
[2019-08-31] MEDS ORDERED: LIDOCAINE-MPF 1% 30 ML VIAL ONE (04:59)
[2019-08-31] MEDS ORDERED: METHYLERGONOVINE 0.2 MG/ML AMP ONE (05:42)
[2019-08-31] MEDS ORDERED: HYDROCORTISONE 1% CREAM 28 GM TUBE PR PRN (06:23)
[2019-08-31] MEDS ORDERED: WITCH HAZEL/GLYCERIN 1 PAD TOP PRN (06:23)
[2019-08-31] MEDS ORDERED: oxyCODONE 5 MG TABLET PO PRN (06:23)
--- NOTE | 2019-08-31 06:34 | DELIVERY NOTE ---
Delivery Note - Labor Labor: positive: Spontaneous, Other (cervical ripening with Cytotec then SROM) - Infant Delivery Method Infant Delivery Method: positive: Spontaneous vaginal delivery - Cervical Ripening Method Cervical Ripening Method: positive: Misoprostil - Presentation Presentation: positive: Vertex, SERGIO - left occiput anterior - Nuchal Cord Nuchal Cord: positive: None (right shoulder bandolear) - Anesthetic Anesthetic Type: - Amniotic Fluid Description Amniotic Fluid Description: positive: Clear - Episiotomy Type Episiotomy Type: positive: None - Laceration Laceration: positive: 2nd degree - Suture Suture Type: positive: Vicryl Suture Size: positive: 3-0 - Delivery Outcome Delivery Outcome: positive: Livebirth (Apgars 7/9) - : positive: Placed in direct skin contact with mother, Bulb syringe, Warmed sex: positive: Female - Cord Cord: positive: 3 vessels (pseudo knot in inna cord times 2) - Placenta Placenta: positive: Intact, Spontaneous - Estimated Blood Loss Estimated Blood Loss (in cc): 400 - Delivery Comments (Free Text/Narrative) Delivery Comments (Free Text/Narrative): Pt presented at 39 weeks for induction for Hx of IUGR. 2 doses of cytotec orally. she SROMed at 1237 with clear fluid. Labor issued spontaneously . She requested and received an Epidural for analgesia. Her monitor strip varied between Cat 1 and 2. Reached complete at 0441. Labored down and didn't push until 0529. Following a 48 min second stage she delivered a live female over a 2nd degree laceration. At time of delivery a right shoulder bandoleer cord was noted. there was also two psuedo knots were seen in the cord. Etelvina landa followed at 0541. Repair with 3-0 vicril. EBL 400 ml.
[2019-08-31] MEDS ORDERED: LACTATED RINGERS 1,000 ML IV SCH (07:00)
[2019-08-31] MEDS: ACETAMINOPHEN 325 MG TABLET PO PRN ×2 (07:52→13:57)
[2019-08-31] MEDS: IBUPROFEN 600 MG TABLET PO SCH ×3 (07:53→20:48)
[2019-08-31] MEDS ORDERED: LIDOCAINE-MPF 1% 30 ML VIAL TD ONE (08:00)
[2019-08-31] MEDS: miSOPROStoL 100 MCG TABLET BC SCH ×2 (12:17→12:18)
[2019-08-31] MEDS: ACETAMINOPHEN 500 MG TABLET PO PRN (20:46)
[2019-08-31] MEDS: DOCUSATE SODIUM 100 MG CAPSULE PO SCH (20:48)
[2019-09-01] MEDS: IBUPROFEN 600 MG TABLET PO SCH ×4 (02:55→21:38)
[2019-09-01] MEDS: ACETAMINOPHEN 500 MG TABLET PO PRN ×3 (06:09→23:28)
[2019-09-01] MEDS: DOCUSATE SODIUM 100 MG CAPSULE PO SCH ×3 (07:44→21:38)
--- NOTE | 2019-09-01 10:07 | PROVIDER PROGRESS NOTE ---
Subjective - Subjective Subjective: Difficult time , baby wouldn't wake to eat, CBG was 70, ultimately formula was given. Pumping when supplementing. No problems with mood, breasts, urination, ambulation, or heavy bleeding. Some pain at lac site but is not severe. AVSS Alert, smiling, cuddling baby, NAD Abd soft, nt/nd Fundus firm, at U 2+ non-pitting edema to the ankle. Objective - Vital Signs/Intake & Output Vital Signs: Vital Signs x48h Temp Pulse Resp BP Pulse Ox 09/01/19 09:24 97.9 F 87 18 128/72 100 09/01/19 04:15 97.9 F 73 18 116/73 Intake & Output: Intake & Output 08/29/19 08/30/19 08/31/19 09/01/19 23:59 23:59 23:59 23:59 Intake Total 500 3090 2821.667 0 Output Total 300 2000 Balance 500 2790 821.667 0 - Lab Results Fish Bones: 08/29/19 20:35 Assessment/Plan - Problem List (1) Normal vaginal delivery Impression: 24yo G1 with IOL at 39w for A1GDM and history of IUGR with this resolved by the time of induction. Doing well except for issues, given encouragement, continue to pump PRN need for supplementation.
[2019-09-02] MEDS: IBUPROFEN 600 MG TABLET PO SCH ×2 (07:03→13:56)
[2019-09-02] MEDS: ACETAMINOPHEN 500 MG TABLET PO PRN ×2 (08:24→16:39)
[2019-09-02] MEDS: DOCUSATE SODIUM 100 MG CAPSULE PO SCH (08:24)
--- NOTE | 2019-09-02 10:53 | Discharge Plan ---
Discharge Plan Problem Reviewed?: Yes Disposition: Home, Self Care Condition: Good Diet: Regular Activity Restrictions: routine Shower Restrictions: No Driving Restrictions: No No Smoking: If you smoke, Please STOP! Call for help. Follow-up with: Chidi Manzanares MD [Provider Admit Priv/Credential] -
--- NOTE | 2019-09-02 10:54 | PROVIDER PROGRESS NOTE ---
Subjective - Subjective Subjective: Meets d/c criteria, see dictated d/c summary Objective - Vital Signs/Intake & Output Vital Signs: Vital Signs x48h Temp Pulse Resp BP Pulse Ox 09/02/19 08:00 98.2 F 74 16 128/54 L 100 Intake & Output: Intake & Output 08/30/19 08/31/19 09/01/19 09/02/19 23:59 23:59 23:59 23:59 Intake Total 3090 2821.667 0 Output Total 300 2000 Balance 2790 821.667 0 - Lab Results Fish Bones: 09/01/19 10:20 Other Labs: Lab Results x24hrs 09/01/19 Range/Units 10:20 Hct 30.1 L (37.0-47.0) %
--- NOTE | 2019-09-02 15:27 | DISCHARGE SUMMARY ---
Physician: Caren Burgess MD DATE OF ADMISSION: 08/30/2019 DATE OF DISCHARGE: 09/02/2019 ADMISSION DIAGNOSES 1. Type A1 gestational diabetes. 2. Intrauterine at 39 weeks. DISCHARGE DIAGNOSIS: Status post spontaneous vaginal delivery. OPERATIONS AND PROCEDURES: 08/31/2019, spontaneous vaginal delivery of a liveborn female; Apgars wer e 7 at one minute and 9 at five minutes. Weight was 6 pounds 9 ounces. HOSPITAL COURSE: Patient was admitted for an induction of labor due to her gestational diabetes. Garcia membreno also had a history of intrauterine growth restriction earlier this with a normal estimate d growth percentage prior to induction. She was induced with misoprostol followed by Pitocin. Her d elivery was uncomplicated. Patient's course was uncomplicated. Her was undergoing phototherapy, and patient o pted to room in. By day 2, she was eating, ambulating, and urinating without difficulties . She did not have any significant pain or bleeding. Her mood was stable. has contin ued to be challenging, but she is patient and continues to try different strategies with nursing supp ort. PHYSICAL EXAMINATION VITALS: She is afebrile, normal vital signs. GENERAL: Alert, pleasant, in no apparent distress. ABDOMEN: Soft, nontender, nondistended. Fundus firm and 1 cm below the umbilicus, nontender. EXTREMITIES: Lower extremities with 1+ nonpitting edema to the ankle. LABS: hematocrit was 30.1. DISCHARGE DISPOSITION: Home. DISCHARGE CONDITION: Good. MEDICATIONS 1. Ibuprofen and Tylenol p.r.n. pain. 2. Colace p.r.n. to soften stool. DISCHARGE INSTRUCTIONS: Routine instructions given. I reminded patient she will need a 2 -hour GTT at 6 weeks. TD: 09/02/2019 11:06
[2019-09-02 17:15] VITALS: BP 126/71
--- NOTE | 2019-09-02 17:16 | Labor Flowsheet ---
Labor Flowsheet Datetime Report Generated by CPN: 09/02/2019 17:16 Datetime: 09/02/2019 16:53 VITAL SIGNS NBP Sys/Zuleima/Mean (mmHg): 126 : 71 : 83 Pulse: 79 Datetime: 08/31/2019 06:09 SpO2 (%): 99 Datetime: 08/31/2019 05:44 Respirations: 16 Datetime: 08/31/2019 05:36 Medication Comments: Pitocin bolus started Datetime: 08/31/2019 05:30 Stage of : Recovery Datetime: 08/31/2019 05:29 LaborFlag: Labor Datetime: 08/31/2019 05:22 Temperature (C): 37.1 Datetime: 08/31/2019 05:20 Patient Care Comments: 260cc emtptied from giles Datetime: 08/31/2019 05:15 UTERINE ACTIVITY Monitor Mode: External Frequency (min): 3-4 Duration (sec): 40-70 ASSESSMENT A Monitor Mode: Telemetry FHR Baseline Rate : 140 Variability: Moderate 6-25 bpm Accelerations: 15X15 Decelerations: Early Category: Category I Pushing Position: Pushing with Contractions Pushing Progress: Presenting Part Visible Datetime: 08/31/2019 05:11 MEDICATIONS Pitocin (milliunits): Increased to @ 3 Datetime: 08/31/2019 04:45 Contraction Comments: difficulty tracing ctx at this time Position 'A': Left Occipital Anterior Datetime: 08/31/2019 04:41 STAGE 2 Pushing: Coached on Pushing Datetime: 08/31/2019 04:37 Station: 2 Exam by: Dr. Giem Vaginal Bleeding: Small Datetime: 08/31/2019 04:26 Monitor Interventions for UA: [place] Adjusted Datetime: 08/31/2019 04:02 Preparation for Delivery: Setup for Delivery Datetime: 08/31/2019 04:01 TEACHING Instructional Method: Verbal; Patient Instructed; Verbalized Understanding Plan of Care: Plan of Care Discussed; Labor Medications: Pitocin Datetime: 08/31/2019 03:45 Pattern: Normal: <= 5 Contractions in 10 Minutes Datetime: 08/31/2019 03:41 PAIN Pain Scale: 0 VAGINAL EXAM Dilatation (cm): 10.0 Effacement (%): 100 Datetime: 08/31/2019 03:35 Communication Comments: Call received from DrGretchen Manzanares for update on pt status. Will check pt to deter mine if cervical change from previous SVE. Datetime: 08/31/2019 03:26 Monitor Interventions for FHR: Ultrasound Adjusted Patient Position/Activity: High Fowlers Datetime: 08/31/2019 03:14 FHR Baseline Changes: Tachycardia Datetime: 08/31/2019 02:50 Provider Reviewed Strip: Yes Datetime: 08/31/2019 02:01 COMMUNICATION Communication: RN at Bedside Datetime: 08/31/2019 00:15 Quality: Mild Resting Tone (Palpate): Relaxed Datetime: 08/30/2019 23:39 Notification Reason: Labor Status; Membrane Status Datetime: 08/30/2019 23:15 Comments: Difficulty tracing FHR at this time Datetime: 08/30/2019 21:57 Pain Assessment Comments: pt states she is not having any pain Datetime: 08/30/2019 21:15 I/O Interventions: Giles Cath Inserted Datetime: 08/30/2019 20:46 Epidural Procedure Other: Pump Started Datetime: 08/30/2019 20:39 Epidural Procedure: Completed Anesthesia Comments: procedure complete. Pt lying supine Datetime: 08/30/2019 20:11 PROCEDURE TIME OUT Procedure Verify: Correct Side and Site are Marked Datetime: 08/30/2019 20:10 Epidural Positioning: Sitting Datetime: 08/30/2019 20:06 ANESTHESIA Anesthesia Plans: Epidural Datetime: 08/30/2019 19:58 Pain Coping: Breathing Through Contractions Datetime: 08/30/2019 19:56 Hygiene: Madeleine Care; Underpad Changed; Linens Changed Datetime: 08/30/2019 19:55 Amniotic Fluid Color: Clear Amniotic Fluid Amount: Small Datetime: 08/30/2019 19:15 PATIENT CARE Oxygen Method: Room Air Datetime: 08/30/2019 18:45 Analgesics/Sedatives: Fentanyl (mcg) @ 50 Datetime: 08/30/2019 17:27 Cervix, Consistency: Soft Cervix, Position: Midposition Datetime: 08/30/2019 17:05 Comfort Measures: Breathing/Relaxation; Rocking Chair; Family Support Datetime: 08/30/2019 12:37 Membrane Status: Ruptured Membranes Rupture Method: Spontaneous
== END 2019-09-02 17:15 | disposition home or self-care (01) | DRG 807 ==
LOC: WFO 19:24 → FBP 19:28 → WFO 20:29 → FBP 20:30 → UNDOADMOB 20:30 → OBSVTOIN 08-30 13:28
PROVIDERS: ADMIT Obstetrics & Gynecology; ATTEND Obstetrics & Gynecology
PROC: 10E0XZZ Delivery of Products of Conception, External Approach (ICD-10-PCS; principal; 2019-08-31)
PROC: 0KQM0ZZ Repair Perineum Muscle, Open Approach (ICD-10-PCS; 2019-08-31)
DX: O24.420 Gestational diabetes mellitus in childbirth, diet controlled (principal); Z37.0 Single live birth; Z3A.39 39 weeks gestation of pregnancy; O76 Abnormality in fetal heart rate and rhythm complicating labor and delivery; O69.89X0 Labor and delivery complicated by other cord complications, not applicable or unspecified; O70.1 Second degree perineal laceration during delivery; Z87.898 Personal history of other specified conditions
CPT/HCPCS: 36415; 85014; 85025; 96360; A9270; G0378; J7120